=== PATIENT | male | born 1990 | race Caucasian/White ===

== ENCOUNTER 2017-02-27 15:15 | Inpatient (IN) | payer MEDICAID, OTHER ==
[~2017-02-27] VITALS: Ht 175.3 cm; Wt 70.5 kg
[2017-02-27 16:29] LABS: Albumin 3.4 g/dL (3.4-5.0); BUN/Creatinine Ratio 11.6; Calcium 9.2 mg/dL (8.5-10.1); Potassium 4.3 mmol/L (3.5-5.1)
[2017-02-27 16:32] LABS: Bilirubin, Total 1.4 mg/dL (0.2-1.0); Total Protein 7.6 g/dL (6.4-8.2)
[2017-02-27 16:59] LABS: Basophils # (auto) 0.1 uL; Basophils % (auto) 0.6 % (0.0-2.0); Eosinophils # (auto) 0.4 uL; Eosinophils % (auto) 1.7 % (0.0-7.0); Hematocrit 42.4 % (41.0-53.0); Hemoglobin 14.8 g/dL (13.5-17.5); Lymphocytes # (auto) 2.9 uL; Lymphocytes % (auto) 12.5 % (10.0-50.0); Mean Corpuscular Hemoglobin 31.1 pg (28.0-32.0); Mean Corpuscular Hgb Conc. 34.9 g/dL (32.0-36.0); Mean Platelet Volume 7.5 fL (6.9-10.8); Monocytes # (auto) 1.9 uL; Monocytes % (auto) 8.1 % (0.0-12.0); Neutrophils # (auto) 18.1 uL; Neutrophils % (auto) 77.1 % (37.0-80.0); Platelet Count (auto) 429 10^3/uL (140-450); Red Cell Distribution Width 12.7 % (11.8-14.3); White Blood Cell 23.5 10^3/uL (4.4-10.8)
[2017-02-27 18:18] LABS: Urine Bilirubin Negative (Negative); Urine Blood Negative /uL (Negative); Urine Color Yellow (Yellow); Urine Glucose Normal (Normal); Urine Ketone 1+ (Negative); Urine Mucus FEW (None Seen); Urine Nitrite Negative (Negative); Urine RBC <1 /hpf (0 - 3); Urine Squamous Epithelial Cell FEW /hpf (<5); Urine pH 5.5 (5.0-8.0)
[2017-02-27] MEDS ORDERED: VANCOMYCIN 1GM/250ML D5W 250 ML IV ONE (18:45)
[2017-02-27] MEDS ORDERED: cefTRIAXone 1GM/50ML D5W 50 ML IV ONE (18:45)
[2017-02-27] MEDS ORDERED: LORazepam 2MG/ML-1ML VIAL IV ONE ×2 (18:45→21:15)
[2017-02-27] MEDS ORDERED: LORazepam 2MG/ML-1ML VIAL ONE (21:13)
[2017-02-27] MEDS ORDERED: LORazepam 2MG/ML-1ML VIAL IM ONE (23:45)
[2017-02-27] MEDS ORDERED: diphenhdrAMINE HCL 50 MG/1 ML VL IM ONE (23:45)
[2017-02-27] MEDS ORDERED: NITROGLYCERIN 0.4 MG SL TAB SL PRN (23:45)
[2017-02-27] MEDS ORDERED: VANCOMYCIN PER PHARMACY 0 MG IV SCH (23:45)
[2017-02-27] MEDS ORDERED: HALOPERIDOL LACTATE 5 MG/ML INJ VIAL IM ONE (23:45)
[2017-02-27] MEDS ORDERED: MORPHINE SULF INJ 2 MG/ML SYRINGE 1ML IV PRN (23:45)
[2017-02-28] MEDS ORDERED: LORazepam 2MG/ML-1ML VIAL IV PRN
[2017-02-28 04:05] LABS: Basophils # (auto) 0 uL; Basophils % (auto) 0.3 % (0.0-2.0); Eosinophils # (auto) 0.3 uL; Eosinophils % (auto) 1.9 % (0.0-7.0); Hematocrit 40.2 % (41.0-53.0); Hemoglobin 14.1 g/dL (13.5-17.5); Lymphocytes # (auto) 1.9 uL; Lymphocytes % (auto) 10.9 % (10.0-50.0); Mean Corpuscular Hemoglobin 31.1 pg (28.0-32.0); Mean Corpuscular Hgb Conc. 35.1 g/dL (32.0-36.0); Mean Corpuscular Volume 88.5 fL (80.0-100.0); Mean Platelet Volume 6.9 fL (6.9-10.8); Monocytes # (auto) 1.7 uL; Monocytes % (auto) 9.4 % (0.0-12.0); Neutrophils # (auto) 13.7 uL; Neutrophils % (auto) 77.5 % (37.0-80.0); Platelet Count (auto) 340 10^3/uL (140-450); Red Cell Distribution Width 12.8 % (11.8-14.3); White Blood Cell 17.7 10^3/uL (4.4-10.8)
[2017-02-28 04:37] LABS: BUN/Creatinine Ratio 10.5; Calcium 8.5 mg/dL (8.5-10.1)
[2017-02-28] MEDS ORDERED: VANCOMYCIN 1GM/250ML D5W 250 ML IV SCH (08:00)
[2017-02-28 08:22] VITALS: BP_SYST 111; BP_SYST 116; BP_DIAS 60
[2017-02-28 09:00] VITALS: BP 111/60
[2017-02-28] MEDS: VANCOMYCIN 1GM/250ML D5W 250 ML IV SCH ×2 (12:00→22:02)
[2017-02-28 12:17] VITALS: BP 125/69
[2017-02-28] MEDS: SODIUM CHLORIDE 0.9% 1,000 ML IV SCH (13:45)
[2017-02-28] MEDS ORDERED: PIPERACILLIN-TAZOB 3.375GM 100 ML IV ONE (14:00)
[2017-02-28] MEDS ORDERED: ACETAMINOPHEN 325 MG TAB PO PRN (14:30)
[2017-02-28 17:35] VITALS: BP 111/49
[2017-02-28] MEDS: PIPERACILLIN-TAZOB 3.375GM 100 ML IV SCH ×2 (18:00→23:33)
[2017-02-28 20:00] VITALS: BP 120/73
[2017-02-28 21:00] VITALS: BP 123/63
[2017-03-01] MEDS: SODIUM CHLORIDE 0.9% 1,000 ML IV SCH (03:07)
[2017-03-01 05:27] VITALS: BP 114/64
[2017-03-01 05:43] LABS: Basophils # (auto) 0 uL; Basophils % (auto) 0.2 % (0.0-2.0); Eosinophils # (auto) 0.1 uL; Eosinophils % (auto) 1.1 % (0.0-7.0); Hematocrit 38.8 % (41.0-53.0); Hemoglobin 13.6 g/dL (13.5-17.5); Lymphocytes # (auto) 1.6 uL; Lymphocytes % (auto) 12.3 % (10.0-50.0); Mean Corpuscular Hemoglobin 30.9 pg (28.0-32.0); Mean Corpuscular Hgb Conc. 35.1 g/dL (32.0-36.0); Mean Corpuscular Volume 87.9 fL (80.0-100.0); Mean Platelet Volume 6.9 fL (6.9-10.8); Monocytes # (auto) 1.2 uL; Monocytes % (auto) 8.8 % (0.0-12.0); Neutrophils # (auto) 10.3 uL; Neutrophils % (auto) 77.6 % (37.0-80.0); Platelet Count (auto) 353 10^3/uL (140-450); Red Cell Distribution Width 12.7 % (11.8-14.3); White Blood Cell 13.3 10^3/uL (4.4-10.8)
[2017-03-01 06:02] LABS: BUN/Creatinine Ratio 9.5; Calcium 8.2 mg/dL (8.5-10.1); Potassium 3.7 mmol/L (3.5-5.1)
[2017-03-01] MEDS: PIPERACILLIN-TAZOB 3.375GM 100 ML IV SCH ×2 (06:13→12:00)
[2017-03-01] MEDS: VANCOMYCIN 1GM/250ML D5W 250 ML IV SCH (08:13)
[2017-03-01 08:39] VITALS: BP 108/57
[2017-03-01] MEDS ORDERED: LORazepam 2MG/ML-1ML VIAL IV PRN (10:30)
== END 2017-03-01 11:50 | disposition left against medical advice (07) | DRG 720 ==
LOC: ER 15:15 → OVERFLOW 15:16 → WEST WING 02-28 08:22
PROVIDERS: ADMIT Nurse Practitioner Family; ATTEND Nurse Practitioner Acute Care
DX: A41.9 Sepsis, unspecified organism (principal); G92 Toxic encephalopathy; E87.1 Hypo-osmolality and hyponatremia; L02.416 Cutaneous abscess of left lower limb; L02.11 Cutaneous abscess of neck; L02.212 Cutaneous abscess of back [any part, except buttock and flank]; L02.413 Cutaneous abscess of right upper limb; L02.414 Cutaneous abscess of left upper limb; F17.210 Nicotine dependence, cigarettes, uncomplicated; L02.415 Cutaneous abscess of right lower limb; L01.00 Impetigo, unspecified; Z53.21 Procedure and treatment not carried out due to patient leaving prior to being seen by health care provider; F11.90 Opioid use, unspecified, uncomplicated; F19.90 Other psychoactive substance use, unspecified, uncomplicated; F15.90 Other stimulant use, unspecified, uncomplicated; F12.90 Cannabis use, unspecified, uncomplicated; L03.818 Cellulitis of other sites; Z59.0 Homelessness; Z91.19 Patient's noncompliance with other medical treatment and regimen
CPT/HCPCS: 36415; 80048; 80053; 80307; 81001; 83605; 85025; 87040; 87077; 87186; 87205; 93005; 93306; 94761; 96365; 96366; 96368; 96372; 96375; 96376; J0696; J2543